=== PATIENT | male | born 1995 | race Caucasian/White ===

== ENCOUNTER 2017-06-26 04:04 | Emergency (ER) | payer BC ==
[~2017-06-26] VITALS: Ht 198.1 cm; Wt 96.7 kg
[2017-06-26 04:09] VITALS: BP 140/89; PULSE 95; TEMP 36.4; O2SAT 98; Ht 198.1 cm; Wt 96.7 kg
--- NOTE | 2017-06-26 04:51 | EMERGENCY ROOM VISIT NOTE ---
History First contact with patient: 04:19 Chief Complaint: LACERATION/CUT (SUT/DERMABOND) Stated Complaint: LAC ON RIGHT HAND Nursing Triage Summary: states he punched a mirror early this morning, but would not reveal the reason as to why he felt the need to break the mirror patient is smiling and in good spirits History of Present Illness The patient is a 21 year old male who presents to the Emergency Room with complaints of a laceration to his right hand. The patient states that he was drinking alcohol this evening. He states that he became frustrated and punched a mirror. He will not disclose the reason for his frustration. He states he was not trying to hurt himself. He denies any pain at this time. He is concerned there could still be glass in the hand. His tetanus is up-to-date. Review of Systems A complete 6 point review of systems was reviewed with the patient with pertinent positives and negatives as per history of present illness. All else were negative. Past Medical/Surgical History Medical Problems: (1) No significant active problems Social History Smoking Status: Never Smoker Alcohol Use: occasionally Marital Status: in relationship Occupation Status: [employer] student Physical Exam Vital Signs Date Time Temp Pulse Resp B/P (MAP) Pulse Ox O2 Delivery O2 Flow Rate FiO2 06/26/17 04:09 36.4 95 18 140/89 98 Room Air Physical Exam VITALS: Vitals are noted on the nurse's note and reviewed by myself. Vital signs stable. GENERAL: This is a 21-year-old male, in no acute distress, sitting up in bed, smells of ETOH, well-developed well-nourished. SKIN: There are multiple superficial abrasions to bilateral hands. There is a small, 1 cm flap-like laceration to the palm of the right hand. No palpable or visible foreign body seen in this wound. There is a larger abrasion to the volar aspect of the right wrist with mild oozing bleeding. MUSCULOSKELETAL: Full range of motion of the hand and all fingers. NEURO: Patient was alert and oriented to person place and time, although does seem to be intoxicated. Medical Decision & Procedures ER Provider Diagnostic Interpretation: RIGHT HAND: No evidence for foreign body. Medical Decision The patient was evaluated as above. He did not sustain any deep lacerations to the hand which will require repair. The hand was scrubbed with sterile saline. The wounds were explored and no foreign bodies were identified on my exam. An x-ray was obtained and did not reveal any evidence of a radiopaque foreign body. The wound was dressed with bacitracin. Patient was advised to keep the wound clean. Wound care instructions were discussed. He verbalized understanding of my assessment and treatment plan was discharged home in good condition. Medication Reconcilliation Current Medication List: was personally reviewed by me Blood Pressure Screening Patient's blood pressure: Elevated blood pressure Blood pressure disposition: Elevated BP felt to be situational Impression Primary Impression: Abrasion of multiple sites of hand and finger Additional Impression: Laceration of right hand Departure Information Dispostion Home / Self-Care Condition GOOD Referrals No Doctor, Assigned (PCP) Patient Instructions My [facility] Additional Instructions Proper wound care is essential for adequate wound healing and infection prevention. You can shower and clean the wound with soap and water. Do not scour over the wound, pat dry with a towel. Do not submerse the wound (i.e. bathe or dish wash) until the wound has fully healed. You can use an antibiotic ointment with a dressing over the wound for the next 3-4 days. After this time you may leave the wound dry and open to the air. For pain control, you can use the following [id number] medicines (if >12 yo): - Regular strength (325mg/tab) Tylenol (acetaminophen) 2 tabs every 4-6 hours as needed. Do not exceed 12 tablets in a 24 hour period. Avoid taking more than 4 grams (4000 mg) of Tylenol per day. This includes any other sources of acetaminophen you may take on a regular basis. - Regular strength (200 mg/tab) Advil (ibuprofen) 1-2 tabs every 4-6 hours as needed. Do not exceed a dose of 3200 mg per day. Follow-up with [facility] for recheck. Return to the emergency department for any redness, swelling or drainage from the wound. Problem Qualifiers Primary Impression: Abrasion of multiple sites of hand and finger Encounter type: initial encounter Laterality: right Qualified Codes: S60.511A - Abrasion of right hand, initial encounter; S60.419A - Abrasion of unspecified finger, initial encounter Additional Impression: Laceration of right hand Encounter type: initial encounter Foreign body presence: without foreign body Qualified Codes: S61.411A - Laceration without foreign body of right hand , initial encounter
--- NOTE | 2017-06-26 05:52 | DIAGNOSTIC IMAGING REPORT ---
R HAND MIN 3 VIEWS ROUTINE CLINICAL HISTORY: right hand injury, ?foreign body trauma COMPARISON: None. DISCUSSION: The bones and joint spaces appear intact. There is no evidence of fracture, dislocation or bony disease. There is no evidence for soft tissue swelling. IMPRESSION: Negative study. No evidence for radiopaque foreign body. The above report was generated using voice recognition software. It may contain grammatical, syntax or spelling errors. Electronically signed by: lE Pang M.D. 06/26/2017 5:51 AM Dictated Date/Time: 06/26/2017 5:50 AM
== END 2017-06-26 05:35 | disposition home or self-care (01) ==
LOC: C.EDB 04:05
DX: S61.411A Laceration without foreign body of right hand, initial encounter (principal); S60.811A Abrasion of right wrist, initial encounter; W22.09XA Striking against other stationary object, initial encounter